=== PATIENT | male | born 1960 | race African-American/Black ===

== ENCOUNTER 2019-04-02 09:45 | Inpatient (IN) | payer OTHER ==
[2019-04-02 13:55] VITALS: BMI 26.6
--- NOTE | 2019-04-02 14:40 | HP ---
CIWA Score Nausea/Vomitin-No Nausea/No Vomiting Muscle Tremors: 4-Moderate,w/Arms Extend Anxiety: 4-Mod. Anxious/Guarded Agitation: 2 Paroxysmal Sweats: No Perspiration Orientation: 2-Disoriented Date<2 days Tacttile Disturbances: 0-None Auditory Disturbances: 0-None Visual Disturbances: 0-None Headache: 0-None Present CIWA-Ar Total Score: 12 - Admission Criteria OASAS Guidelines: Admission for Medically Managed Detox: Requires at least one of the followin. CIWA greater than 12 2. Seizures within the past 24 hours 3. Delirium tremens within the past 24 hours 4. Hallucinations within the past 24 hours 5. Acute intervention needed for co occurring medical disorder 6. Acute intervention needed for co occurring psychiatric disorder 7. Severe withdrawal that cannot be handled at a lower level of care (continued vomiting, continued diarrhea, abnormal vital signs) requiring intravenous medication and/or fluids 8. Admission ROS S - [facility] Chief Complaint: Alcohol withdrawal symptoms. Allergies/Adverse Reactions: Allergies Allergy/AdvReac Type Severity Reaction Status Date / Time No Known Allergies Allergy Verified 04/02/19 13:46 History of Present Illness: Patient presents with ETOH withdrawal symptoms. UDS + BZO as patient has active prescription Valium written 03/03/19 for five days. Patient did not take medication as prescribed but took recent dose which reflects in urine. Patient started drinking at age 14 and drinks 1 pint of vodka daily. Last drink today, GREGORIO 0.109. Patient reports hx of seizures, blackouts and falls. Last seizure 4 months ago. PMH includes tobacco use, HTN, Hep C ( not treated), HIV + ( compliant with meds and has meds with him), anxiety. depression and old CVA x 2. Patient denies SI/HI and suicide attempts. Exam Limitations: Physical Impairment (ambulates with walker.) - Ebola screening Have you traveled outside of the country in the last 21 days: No Have you had contact with anyone from an Ebola affected area: No Have you been sick,other than usual withdrawal symptoms: No Do you have a fever: No - Review of Systems Constitutional: Changes in sleep, Unexplained wgt Loss EENT: reports: No Symptoms Reported Respiratory: reports: No Symptoms reported Cardiac: reports: No Symptoms Reported GI: reports: Poor Fluid Intake, Abdominal cramping : reports: No Symptoms Reported Musculoskeletal: reports: No Symptoms Reported Integumentary: reports: No Symptoms Reported Neuro: reports: Seizure, Tremors, Unsteady Gait Endocrine: reports: No Symptoms Reported Hematology: reports: No Symptoms Reported Psychiatric: reports: Anxious, Depressed Patient History - Patient Medical History Hx Anemia: No Hx Asthma: No Hx Chronic Obstructive Pulmonary Disease (COPD): No Hx Cancer: No Hx Cardiac Disorders: No Hx Congestive Heart Failure: No Hx Hypertension: Yes Hx Hypercholesterolemia: No Hx Pacemaker: No HX Cerebrovascular Accident: Yes (CVA x 2) Hx Seizures: Yes (last 4 months ago) Hx Dementia: No Hx Diabetes: No Hx Gastrointestinal Disorders: No Hx Liver Disease: No Hx Genitourinary Disorders: No Hx Sexually Transmitted Disorders: No Hx Renal Disease (ESRD): No Hx Thyroid Disease: No Hx Human Immunodeficiency Virus (HIV): Yes (compliant with meds) Hx Hepatitis C: Yes Hx Depression: Yes Hx Suicide Attempt: No Hx Bipolar Disorder: No Hx Schizophrenia: No - Patient Surgical History Past Surgical History: Yes Hx Abdominal Surgery: Yes (S/P peg insertion 2016, hernia repair) Other Surgical History: s/p trach 2017 Anesthesia Reaction: No - PPD History Previous Implant?: No Documented Results: Negative w/o proof PPD to be Administered?: Yes - Smoking Cessation Smoking history: Current every day smoker Have you smoked in the past 12 months: Yes Aproximately how many cigarettes per day: 5 Hx Chewing Tobacco Use: No Initiated information on smoking cessation: Yes 'Breaking Loose' booklet given: 04/02/19 - Substance & Tx. History Hx Alcohol Use: Yes Hx Substance Use: No Substance Use Type: Alcohol - Substances abused Alcohol Substance route: Oral Frequency: Daily Amount used: 1 PINT VODKA Age of first use: 14 Date of last use: 04/01/19 Family Disease History - Family Disease History Family History: Denies Admission Physical Exam BHS - Vital Signs Vital Signs: Vital Signs - 24 hr 04/02/19 13:51 Temperature 97.1 F L Pulse Rate 110 H Respiratory 18 Rate Blood Pressure 139/93 - Physical General Appearance: Yes: Nourished, Appropriately Dressed, Alcohol on Breath, Tremorous, Anxious HEENTM: Yes: EOMI, Hearing grossly Normal, Normocephalic, Normal Voice, KIT, Pharynx Normal Respiratory: Yes: Chest Non-Tender, Lungs Clear, Normal Breath Sounds, No Respiratory Distress, No Accessory Muscle Use Neck: Yes: No masses,lesions,Nodules, Supple, Trachea in good position Breast: Yes: Breast Exam Deferred Cardiology: Yes: Regular Rhythm, Regular Rate, S1, S2 Abdominal: Yes: Normal Bowel Sounds, Non Tender, Soft Genitourinary: Yes: Within Normal Limits Back: Yes: Normal Inspection Musculoskeletal: Yes: full range of Motion, Other (right sided weakness) Extremities: Yes: Normal Range of Motion, Non-Tender, Tremors Neurological: Yes: vice president industrial relations II-XII NML intact, Alert, Normal Response, Depressed Affect, Other (anxious, right sided weakness, forgetfull with date) Integumentary: Yes: Normal Color, Dry, Warm Lymphatic: Yes: Within Normal Limits - Diagnostic (1) Alcohol dependence with uncomplicated withdrawal Current Visit: Yes Status: Acute (2) HTN (hypertension) Current Visit: Yes Status: Chronic Qualifiers: Hypertension type: essential hypertension Qualified Code(s): I10 - Essential (primary) hypertension (3) Right sided weakness Current Visit: Yes Status: Chronic (4) CVA, old, hemiparesis Current Visit: Yes Status: Chronic (5) HIV (human immunodeficiency virus infection) Current Visit: Yes Status: Chronic Qualifiers: HIV symptom status: unspecified Qualified Code(s): B20 - Human immunodeficiency virus [HIV] disease (6) Hepatitis C Current Visit: Yes Status: Chronic Qualifiers: Viral hepatitis chronicity: unspecified Cleared for Admission [facility] - Detox or Rehab [facility] Level of Care: Medically Managed Detox Regimen/Protocol: Librium Breathalyzer - Breathalyzer Breathalyzer: 0.109 Urine Drug Screen - Test Device Lot number: [id number] Expiration date: 12/10/20 - Control Is test valid?: Yes - Results Drug screen NEGATIVE: No Urine drug screen results: BZO-Benzodiazepines Inpatient Rehab Admission - Rehab Decision to Admit Inpatient rehab admission?: No
[2019-04-02] MEDS ORDERED: chlordiazePOXIDE HCL 25 MG CAPSULE PO PRN (14:53)
[2019-04-02] MEDS ORDERED: MAG HYDROX/AL HYDROX/SIMETH 30 ML UNIT-DOSE CUP PO PRN (14:54)
[2019-04-02] MEDS ORDERED: MAGNESIUM HYDROX 2400MG/30ML ORAL SUSPENSION 30 ML CUP PO PRN (14:54)
[2019-04-02] MEDS ORDERED: hydrOXYzine PAMOATE 25 MG CAPSULE (FP) PO PRN (14:54)
[2019-04-02] MEDS ORDERED: IBUPROFEN 400 MG TABLET (FP) PO PRN (14:54)
[2019-04-02] MEDS ORDERED: BISMUTH SUBSALICYLATE 524 MG/30 ML UD PO PRN (14:54)
[2019-04-02] MEDS ORDERED: MAGNESIUM CITRATE 300 ML BOTTLE PO PRN (14:54)
[2019-04-02] MEDS ORDERED: NICOTINE POLACRILEX 2 MG GUM BUC PRN (14:54)
[2019-04-02] MEDS ORDERED: ACETAMINOPHEN 325 MG TABLET (FP) PO PRN ×2 (14:54)
[2019-04-02] MEDS ORDERED: MENTHOL/PHENOL 1 EACH UD MM PRN (14:54)
[2019-04-02] MEDS ORDERED: guaiFENesin 200 MG/10 ML 10 ML UNIT-DOSE CUPS PO PRN (14:54)
[2019-04-02 16:00] LABS: HEMATOCRIT 44.8 % (35.4-49); HEMOGLOBIN 14.9 GM/dL (11.7-16.9); MCH 29.4 pg (25.7-33.7); MCHC 33.3 g/dl (32.0-35.9); MEAN CELL VOLUME 88.3 fl (80-96); PLATELET COUNT 210 K/MM3 (134-434); RBC 5.07 M/mm3 (4.00-5.60); RDW 15.4 % (11.9-15.9); WHITE BLOOD COUNT 2.5 K/mm3 (4.0-10.0)
[2019-04-02 16:24] LABS: ALBUMIN 3.8 g/dl (3.4-5.0); BILIRUBIN,TOTAL 0.8 mg/dL (0.2-1); BLOOD UREA NITROGEN 11.8 mg/dL (7-18); CALCIUM 8.9 mg/dL (8.5-10.1); CREATININE 0.6 mg/dL (0.55-1.3); POTASSIUM 3.4 mmol/L (3.5-5.1); TOT PROT 8.5 g/dl (6.4-8.2)
[2019-04-02] MEDS: chlordiazePOXIDE HCL 25 MG CAPSULE PO SCH ×2 (17:21→22:12)
--- NOTE | 2019-04-02 17:42 | CONSULT ---
[facility] Psychiatric Consult - Data Date of interview: 04/02/19 Admission source: [facility] Identifying data: Readmission to [facility] for this 59 y/o AA male self- referred for detoxification (alcohol). Interviewed at [address] [place] [address]. Patient is single , no dependents, domiciled, unemploye, disabled (uses a walker + cane) and supported on [employer] funds. Substance Abuse History: Confirmed by the patient in this interview. Details in current [facility] report as follows : Smoking history: Current every day smoker. Have you smoked in the past 12 months: Yes. Aproximately how many cigarettes per day: 5. Hx Chewing Tobacco Use: No. Initiated information on smoking cessation: Yes. 'Breaking Loose' booklet given: 04/02/19. - Substance & Tx. History. Hx Alcohol Use: Yes. Hx Substance Use: No. Substance Use Type: Alcohol. - Substances abused. Alcohol. Substance route: Oral. Frequency: Daily. Amount used: 1 PINT VODKA. Age of first use: 14. Date of last use: Medical History: Medical profile is remarkable for PEG placement (2017), past tracheostomy, hypertension, antecedent of CVA x 2 (right sided paresis), hepatitis C, HIV infection (non-adherent to ART medications and a history of seizures. Psychiatric History: Patient denies history of psychiatric hospitalizations, OPD care or suicide attempts. Physical/Sexual Abuse/Trauma History: Heavy stressors : serious medical illnesses, physical disabilities, financial difficulties and lack of family support. Additional Comment: Urine drug screen results: BZO-Benzodiazepines. Noted. Mental Status Exam - Mental Status Exam Alert and Oriented to: Time, Place, Person Cognitive Function: Good Patient Appearance: Unkempt, Disheveled Mood: Nervous, Withdrawn, Anxious, Irritable Affect: Mood Congruent, Constricted Patient Behavior: Restless (shaking), Fatigued, Appropriate, Cooperative Speech Pattern: Clear, Appropriate Voice Loudness: Normal Thought Process: Goal Oriented Thought Disorder: Not Present Hallucinations: Denies Suicidal Ideation: Denies Homicidal Ideation: Denies Insight/Judgement: Poor Sleep: Poorly, Difficulty falling asleep Appetite: Poor Gait/Station: Other (not observed ; supine for entire interview ; noted cane + walker at bedside) Psychiatric Findings - Problem List ([place] 1, 2,3) (1) Alcohol dependence with uncomplicated withdrawal Current Visit: Yes Status: Acute (2) Insomnia Current Visit: Yes Status: Chronic - Initial Treatment Plan Initial Treatment Plan: Psychoeducation. Sleep hygiene. Insomnia is addressed with melatonin. Detoxification. Falls precautions. AA meetings. Patient agrees with this plan of care. Verbal consent given to MD. Munoz.
[2019-04-02 21:30] LABS: EPI CELLS 0.9 /HPF (0-5/HPF); HYALINE CASTS 7 /lpf (0-8); PH,URINE 6.5 (5.0-8.0); URINE APPEARANCE TURBID; URINE BACTERIA 1.7 /hpf (NEGATIVE); URINE BILIRUBIN 1+ (NEGATIVE); URINE COLOR DK YELLOW; URINE GLUCOSE (UA) NEGATIVE (NEGATIVE); URINE KETONE TRACE (NEGATIVE); URINE LEUK ESTERASE NEGATIVE (NEGATIVE); URINE NITRITE NEGATIVE (NEGATIVE); URINE PROTEIN 2+ (NEGATIVE); URINE RBC 4 /hpf (0-4); URINE WBC 1 /hpf (0-5)
[2019-04-02] MEDS: levETIRAcetam 500 MG TABLET (FP) PO SCH (22:12)
[2019-04-02] MEDS: THIAMINE HCL 100 MG TABLET (FP) PO SCH (22:12)
[2019-04-02] MEDS: MELATONIN 5 MG TABLETS PO PRN (22:13)
[2019-04-03] MEDS: chlordiazePOXIDE HCL 25 MG CAPSULE PO SCH ×4 (06:08→22:22)
[2019-04-03] MEDS: ABACAVIR/DOLUTEGRAVIR/LAMIVUDI (TRIUMEQ) TABLET -NF PO SCH (07:48)
--- NOTE | 2019-04-03 10:01 | PN ---
S CIWA - CIWA Score Nausea/Vomitin-No Nausea/No Vomiting Muscle Tremors: 3 Anxiety: 2 Agitation: 2 Paroxysmal Sweats: 2 Orientation: 0-Oriented Tacttile Disturbances: 0-None Auditory Disturbances: 0-None Visual Disturbances: 0-None Headache: 2-Mild CIWA-Ar Total Score: 11 S Progress Note (SOAP) Subjective: c/o shakes, anxiety, and headache Objective: 04/03/19 10:00 Vital Signs 04/03/19 04/03/19 04/03/19 03:30 06:27 09:46 Temperature 97.2 F L 97.5 F L Pulse Rate 105 H 114 H Respiratory 18 18 18 Rate Blood Pressure 131/95 110/81 Lab Results WBC 2.5 K/mm3 (4.0-10.0) L 04/02/19 15:00 RBC 5.07 M/mm3 (4.00-5.60) 04/02/19 15:00 Hgb 14.9 GM/dL (11.7-16.9) 04/02/19 15:00 Hct 44.8 % (35.4-49) 04/02/19 15:00 MCV 88.3 fl (80-96) 04/02/19 15:00 MCHC 33.3 g/dl (32.0-35.9) 04/02/19 15:00 RDW 15.4 % (11.9-15.9) 04/02/19 15:00 Plt Count 210 K/MM3 (134-434) 04/02/19 15:00 Sodium 141 mmol/L (136-145) 04/02/19 15:00 Potassium 3.4 mmol/L (3.5-5.1) L 04/02/19 15:00 Chloride 106 mmol/L (98-107) 04/02/19 15:00 Carbon Dioxide 26 mmol/L (21-32) 04/02/19 15:00 Anion Gap 9 MMOL/L (8-16) 04/02/19 15:00 BUN 11.8 mg/dL (7-18) 04/02/19 15:00 Creatinine 0.6 mg/dL (0.55-1.3) 04/02/19 15:00 Random Glucose 131 mg/dL (74-106) H 04/02/19 15:00 Calcium 8.9 mg/dL (8.5-10.1) 04/02/19 15:00 Labs noted. Assessment: 04/03/19 10:01 AOX3, in no acute distress. Full rom, ambulates in the unit. withdrawal signs Plan: continue detox.
[2019-04-03] MEDS: amLODIPine BESYLATE 2.5 MG TABLET (FP) PO SCH (10:08)
[2019-04-03] MEDS: levETIRAcetam 500 MG TABLET (FP) PO SCH ×2 (10:08→22:22)
[2019-04-03] MEDS: PRENATAL VITAMINS W/ FOLIC ACID TABLET (FP) PO SCH (10:08)
[2019-04-03] MEDS: NICOTINE 7 MG/24 HOURS TOPICAL PATCH TD SCH (10:09)
--- NOTE | 2019-04-03 12:38 | EKG ---
Test Reason : Blood Pressure : / mmHG Vent. Rate : 096 BPM Atrial Rate : 096 BPM P-R Int : 168 ms QRS Dur : 082 ms QT Int : 338 ms P-R-T Axes : 038 021 022 degrees QTc Int : 427 ms SINUS RHYTHM WITH PREMATURE ATRIAL COMPLEXES NO PREVIOUS ECGS AVAILABLE Confirmed by JOSE ALFREDO BLUE MD ([id number]) on 04/03/2019 12:37:53 PM Referred By: Confirmed By:JOSE ALFREDO BLUE MD
[2019-04-03] MEDS: THIAMINE HCL 100 MG TABLET (FP) PO SCH (22:22)
[2019-04-03] MEDS: MELATONIN 5 MG TABLETS PO PRN (22:23)
[2019-04-04] MEDS: chlordiazePOXIDE HCL 25 MG CAPSULE PO SCH ×2 (05:57→10:15)
[2019-04-04] MEDS: ABACAVIR/DOLUTEGRAVIR/LAMIVUDI (TRIUMEQ) TABLET -NF PO SCH (07:21)
[2019-04-04] MEDS: PRENATAL VITAMINS W/ FOLIC ACID TABLET (FP) PO SCH (10:15)
[2019-04-04] MEDS: amLODIPine BESYLATE 2.5 MG TABLET (FP) PO SCH (10:15)
[2019-04-04] MEDS: levETIRAcetam 500 MG TABLET (FP) PO SCH ×2 (10:15→22:02)
[2019-04-04] MEDS: NICOTINE 7 MG/24 HOURS TOPICAL PATCH TD SCH (10:16)
--- NOTE | 2019-04-04 13:22 | PN ---
S CIWA - CIWA Score Nausea/Vomitin Muscle Tremors: 2 Anxiety: 2 Agitation: 1-Slight > Activity Paroxysmal Sweats: No Perspiration Orientation: 0-Oriented Tacttile Disturbances: 0-None Auditory Disturbances: 0-None Visual Disturbances: 0-None Headache: 1-Very Mild CIWA-Ar Total Score: 8 BHS Progress Note (SOAP) Subjective: ANXIOUS SWEATING INSOMNIA Objective: 04/04/19 13:21 Vital Signs - 24 hr 04/03/19 04/03/19 04/03/19 13:49 17:41 22:15 Temperature 97.1 F L 97.8 F 97.4 F L Pulse Rate 123 H 110 H 111 H Respiratory 18 17 17 Rate Blood Pressure 111/79 121/93 111/87 04/04/19 04/04/19 04/04/19 00:30 03:30 06:29 Temperature 97 F L Pulse Rate 92 H Respiratory 18 18 16 Rate Blood Pressure 116/80 04/04/19 04/04/19 09:19 13:11 Temperature 97 F L 96.7 F L Pulse Rate 98 H 118 H Respiratory 18 18 Rate Blood Pressure 107/74 109/86 Laboratory Tests 04/02/19 04/02/19 04/02/19 15:00 15:00 15:00 WBC 2.5 L RBC 5.07 Hgb 14.9 Hct 44.8 MCV 88.3 MCH 29.4 MCHC 33.3 RDW 15.4 Plt Count 210 MPV 8.0 Sodium 141 Potassium 3.4 L Chloride 106 Carbon Dioxide 26 Anion Gap 9 BUN 11.8 Creatinine 0.6 Est GFR (CKD-EPI)AfAm 126.66 Est GFR (CKD-EPI)NonAf 109.28 Random Glucose 131 H Calcium 8.9 Total Bilirubin 0.8 AST 63 H ALT 33 Alkaline Phosphatase 82 Total Protein 8.5 H Albumin 3.8 Urine Color Urine Appearance Urine pH Ur Specific [place] Urine Protein Urine Glucose (UA) Urine Ketones Urine Blood Urine Nitrite Urine Bilirubin Urine Urobilinogen Ur Leukocyte Esterase Urine WBC (Auto) Urine RBC (Auto) Urine Casts (Auto) U Epithel Cells (Auto) Urine Bacteria (Auto) RPR Titer Nonreactive 04/02/19 15:42 WBC RBC Hgb Hct MCV MCH MCHC RDW Plt Count MPV Sodium Potassium Chloride Carbon Dioxide Anion Gap BUN Creatinine Est GFR (CKD-EPI)AfAm Est GFR (CKD-EPI)NonAf Random Glucose Calcium Total Bilirubin AST ALT Alkaline Phosphatase Total Protein Albumin Urine Color Dk yellow Urine Appearance Turbid Urine pH 6.5 Ur Specific [place] 1.027 Urine Protein 2+ H Urine Glucose (UA) Negative Urine Ketones Trace H Urine Blood Negative Urine Nitrite Negative Urine Bilirubin 1+ H Urine Urobilinogen 1.0 Ur Leukocyte Esterase Negative Urine WBC (Auto) 1 Urine RBC (Auto) 4 Urine Casts (Auto) 7 U Epithel Cells (Auto) 0.9 Urine Bacteria (Auto) 1.7 RPR Titer ALERT AMBULATORY ORIENTED Assessment: 04/04/19 13:21 ACUTE WITHDRAWAL Plan: CONT DETOX PROTOCOL
[2019-04-04] MEDS ORDERED: chlordiazePOXIDE HCL 10 MG CAPSULE PO PRN (17:00)
[2019-04-04] MEDS: chlordiazePOXIDE HCL 10 MG CAPSULE PO SCH ×2 (17:29→22:02)
[2019-04-04] MEDS: THIAMINE HCL 100 MG TABLET (FP) PO SCH (22:02)
[2019-04-04] MEDS: MELATONIN 5 MG TABLETS PO PRN (22:02)
[2019-04-05] MEDS: chlordiazePOXIDE HCL 10 MG CAPSULE PO SCH ×3 (05:45→16:16)
[2019-04-05] MEDS: ABACAVIR/DOLUTEGRAVIR/LAMIVUDI (TRIUMEQ) TABLET -NF PO SCH (07:43)
[2019-04-05] MEDS: levETIRAcetam 500 MG TABLET (FP) PO SCH ×2 (11:01→22:05)
[2019-04-05] MEDS: PRENATAL VITAMINS W/ FOLIC ACID TABLET (FP) PO SCH (11:01)
[2019-04-05] MEDS: NICOTINE 7 MG/24 HOURS TOPICAL PATCH TD SCH (11:01)
[2019-04-05] MEDS: amLODIPine BESYLATE 2.5 MG TABLET (FP) PO SCH (12:15)
--- NOTE | 2019-04-05 15:00 | PN ---
S CIWA - CIWA Score Nausea/Vomitin-No Nausea/No Vomiting Muscle Tremors: 3 Anxiety: 1-Mildly Anxious Agitation: 1-Slight > Activity Paroxysmal Sweats: No Perspiration Orientation: 2-Disoriented Date<2 days Tacttile Disturbances: 1-Very Mild Itch/Numbness Auditory Disturbances: 0-None Visual Disturbances: 1-Very Mild Sensitivity Headache: 0-None Present CIWA-Ar Total Score: 9 BHS Progress Note (SOAP) Subjective: Tremors, Anxious. Objective: PATIENT A & O X 2 (UNCERTAIN ABOUT CURRENT DAY / DATE). PATIENT OBSERVED AMBULATING ON UNIT UNASSISTED. IN NO ACUTE DISTRESS. 04/05/19 14:57 Vital Signs Temperature 97.3 F L 04/05/19 13:20 Pulse Rate 98 H 04/05/19 13:20 Respiratory Rate 18 04/05/19 13:20 Blood Pressure 119/87 04/05/19 13:20 O2 Sat by Pulse Oximetry (%) Laboratory Tests 04/02/19 04/02/19 04/02/19 15:00 15:00 15:00 WBC 2.5 L RBC 5.07 Hgb 14.9 Hct 44.8 MCV 88.3 MCH 29.4 MCHC 33.3 RDW 15.4 Plt Count 210 MPV 8.0 Sodium 141 Potassium 3.4 L Chloride 106 Carbon Dioxide 26 Anion Gap 9 BUN 11.8 Creatinine 0.6 Est GFR (CKD-EPI)AfAm 126.66 Est GFR (CKD-EPI)NonAf 109.28 Random Glucose 131 H Calcium 8.9 Total Bilirubin 0.8 AST 63 H ALT 33 Alkaline Phosphatase 82 Total Protein 8.5 H Albumin 3.8 Urine Color Urine Appearance Urine pH Ur Specific [place] Urine Protein Urine Glucose (UA) Urine Ketones Urine Blood Urine Nitrite Urine Bilirubin Urine Urobilinogen Ur Leukocyte Esterase Urine WBC (Auto) Urine RBC (Auto) Urine Casts (Auto) U Epithel Cells (Auto) Urine Bacteria (Auto) RPR Titer Nonreactive 04/02/19 15:42 WBC RBC Hgb Hct MCV MCH MCHC RDW Plt Count MPV Sodium Potassium Chloride Carbon Dioxide Anion Gap BUN Creatinine Est GFR (CKD-EPI)AfAm Est GFR (CKD-EPI)NonAf Random Glucose Calcium Total Bilirubin AST ALT Alkaline Phosphatase Total Protein Albumin Urine Color Dk yellow Urine Appearance Turbid Urine pH 6.5 Ur Specific [place] 1.027 Urine Protein 2+ H Urine Glucose (UA) Negative Urine Ketones Trace H Urine Blood Negative Urine Nitrite Negative Urine Bilirubin 1+ H Urine Urobilinogen 1.0 Ur Leukocyte Esterase Negative Urine WBC (Auto) 1 Urine RBC (Auto) 4 Urine Casts (Auto) 7 U Epithel Cells (Auto) 0.9 Urine Bacteria (Auto) 1.7 RPR Titer LABS NOTED. LEVETIRACETAM LEVEL PENDING. PATIENT HAD LOW WBC LEVELS ON PREVIOUS ADMISSIONS. 04/05/19 15:01 Assessment: 04/05/19 14:59 WITHDRAWAL SYMPTOMS. HYPOKAQLEMIA. LEUKOPENIA. 04/05/19 15:04 Plan: CONTINUE DETOX. K--DUR, 40 MEQ PO X 1 NOW, THEN 20 MEW PO X 1 TONIGHT FOR LOW ADMISSION K LEVEL. PATIENT SCHEDULED FOR D/C TOMORROW.
[2019-04-05] MEDS ORDERED: POTASSIUM CHLORIDE TABS 20 MEQ TABLET.ER (FP) PO ONE ×2 (15:35→22:00)
[2019-04-05] MEDS ORDERED: cloNIDine HCL 0.1 MG TABLET PO ONE (20:16)
[2019-04-05] MEDS: MELATONIN 5 MG TABLETS PO PRN (22:05)
[2019-04-05] MEDS: THIAMINE HCL 100 MG TABLET (FP) PO SCH (22:05)
[2019-04-06] MEDS: chlordiazePOXIDE HCL 10 MG CAPSULE PO SCH (05:42)
[2019-04-06 06:20] VITALS: TEMP 97.1
[2019-04-06] MEDS: ABACAVIR/DOLUTEGRAVIR/LAMIVUDI (TRIUMEQ) TABLET -NF PO SCH (07:36)
[2019-04-06 09:31] VITALS: BP 117/87; PULSE 98
[2019-04-06] MEDS ORDERED: ASPIRIN COATED 81 MG TABLET.EC PO SCH (10:00)
--- NOTE | 2019-04-06 17:04 | DS ---
[facility] Detox Discharge Summary Admission Date: 04/02/19 Discharge Date: 04/06/19 - History Present History: Alcohol Dependence Additional Comments: PATIENT INITIALLY INTENT ON GOING TO [facility], [place]) FOR AFTERCARE. HOWEVER, PATIENT DECLINED REFERRAL JUST PRIOR TO LEAVING DETOX UNIT AND ELECTED TO GO HOME INSTEAD. PATIENT ADVISED TO CONSIDER LOCAL 12-STEP / NA / AA OUTPATIENT SUPPORT GROUP PROGRAMS FOR AFTERCARE. PATIENT ALSO ADVISED TO FOLLOW-UP WITH SALES REPRESENTATIVE [employer]EWEL[employer] AFTER DISCHARGE FROM DETOX FOR GENERAL MEDICAL ASSESSMENT AND FOR LOW WBC AND POTASSIUM LEVELS NOTED ON DETOX ADMISSION LABORATORY ASSESSMENT. PATIENT VERBALIZED UNDERSTANDING OF ALL RECOMMENDATIONS PRESENTED TO HIM PRIOR TO DISCHARGE FROM DETOX UNIT. COPIES OF RESULTS OF ALL LABS DRAWN WHILE ADMITTED FOR DETOX GIVEN TO PATIENT AT TIME OF DISCHARGE FROM DETOX UNIT. TRANSPORTATION ARRANGED BY PATIENTS COUNSELOR (Rosalva CARRILLO) TO ASSIST HIM BACK HOME. PATIENT WAS DISCHARGED FROM DETOX UNIT NI STABLE MEDICAL CONDITION. Pertinent Past History: History Of CVA With Subsequent Hemiparesis and Right-Sided Weakness, HTN, Hep C , H.I.V., Hypokalemia, Leukopenia, Insomnia. - Physical Exam Results Vital Signs: Vital Signs Temperature 97.1 F L 04/06/19 09:00 Pulse Rate 98 H 04/06/19 09:00 Respiratory Rate 17 04/06/19 09:00 Blood Pressure 117/87 04/06/19 09:00 O2 Sat by Pulse Oximetry (%) Pertinent Admission Physical Exam Findings: WITHDRAWAL SYMPTOMS. Laboratory Tests 04/02/19 04/02/19 04/02/19 15:00 15:00 15:00 WBC 2.5 L RBC 5.07 Hgb 14.9 Hct 44.8 MCV 88.3 MCH 29.4 MCHC 33.3 RDW 15.4 Plt Count 210 MPV 8.0 Sodium 141 Potassium 3.4 L Chloride 106 Carbon Dioxide 26 Anion Gap 9 BUN 11.8 Creatinine 0.6 Est GFR (CKD-EPI)AfAm 126.66 Est GFR (CKD-EPI)NonAf 109.28 Random Glucose 131 H Calcium 8.9 Total Bilirubin 0.8 AST 63 H ALT 33 Alkaline Phosphatase 82 Total Protein 8.5 H Albumin 3.8 Urine Color Urine Appearance Urine pH Ur Specific [place] Urine Protein Urine Glucose (UA) Urine Ketones Urine Blood Urine Nitrite Urine Bilirubin Urine Urobilinogen Ur Leukocyte Esterase Urine WBC (Auto) Urine RBC (Auto) Urine Casts (Auto) U Epithel Cells (Auto) Urine Bacteria (Auto) RPR Titer Nonreactive 04/02/19 15:42 WBC RBC Hgb Hct MCV MCH MCHC RDW Plt Count MPV Sodium Potassium Chloride Carbon Dioxide Anion Gap BUN Creatinine Est GFR (CKD-EPI)AfAm Est GFR (CKD-EPI)NonAf Random Glucose Calcium Total Bilirubin AST ALT Alkaline Phosphatase Total Protein Albumin Urine Color Dk yellow Urine Appearance Turbid Urine pH 6.5 Ur Specific [place] 1.027 Urine Protein 2+ H Urine Glucose (UA) Negative Urine Ketones Trace H Urine Blood Negative Urine Nitrite Negative Urine Bilirubin 1+ H Urine Urobilinogen 1.0 Ur Leukocyte Esterase Negative Urine WBC (Auto) 1 Urine RBC (Auto) 4 Urine Casts (Auto) 7 U Epithel Cells (Auto) 0.9 Urine Bacteria (Auto) 1.7 RPR Titer LABS NOTED. - Treatment Hospital Course: Detox Protocol Followed, Detoxed Safely, Responded well, Discharged Condition Good Patient has Accepted a Rehab Referral to: PT. ADVISED TO CONSIDER LOCAL 12-STEP / AA OUTPATIENT SUPPORT GROUP PROGRAM - Medication Discharge Medications: Ambulatory Orders Abacavir/Dolutegravir/Lamivudi [Triumeq Tablet] 1 each PO DAILY 04/02/19 Amlodipine Besylate 2.5 mg PO DAILY 04/02/19 Aspirin [Aspirin EC] 81 mg PO DAILY 04/02/19 Nicotine Patch [Nicoderm Patch -] 1 patch TD DAILY 04/02/19 Thiamine Mononitrate [Vitamin B-1] 100 mg PO DAILY 04/02/19 levETIRAcetam [Keppra -] 500 mg PO BID 04/02/19 - Diagnosis (1) Alcohol dependence with uncomplicated withdrawal Status: Acute (2) CVA, old, hemiparesis Status: Chronic (3) HIV (human immunodeficiency virus infection) Status: Chronic Qualifiers: HIV symptom status: unspecified Qualified Code(s): B20 - Human immunodeficiency virus [HIV] disease (4) HTN (hypertension) Status: Chronic Qualifiers: Hypertension type: essential hypertension Qualified Code(s): I10 - Essential (primary) hypertension (5) Hepatitis C Status: Chronic Qualifiers: Viral hepatitis chronicity: chronic Hepatic coma status: without hepatic coma Qualified Code(s): B18.2 - Chronic viral hepatitis C (6) Insomnia Status: Chronic Qualifiers: Insomnia type: unspecified Qualified Code(s): G47.00 - Insomnia, unspecified (7) Right sided weakness Status: Chronic - AMA Did Patient Leave Against Medical Advice: No
--- NOTE | 2019-06-08 09:39 | EKG ---
Test Reason : Blood Pressure : / mmHG Vent. Rate : 106 BPM Atrial Rate : 106 BPM P-R Int : 176 ms QRS Dur : 090 ms QT Int : 354 ms P-R-T Axes : 061 052 047 degrees QTc Int : 470 ms SINUS TACHYCARDIA OTHERWISE NORMAL ECG WHEN COMPARED WITH ECG OF 02-APR-2019 15:46, PREMATURE ATRIAL COMPLEXES ARE NO LONGER PRESENT Confirmed by Dannie Bell MD ([id number]) on 06/08/2019 9:39:07 AM Referred By: Confirmed By:Dannie Bell MD
== END 2019-04-06 09:15 | disposition home or self-care (01) | DRG 775 ==
LOC: YASAS 09:45 → Y3N 15:36
PROVIDERS: ADMIT Surgery; ATTEND Surgery
PROC: HZ2ZZZZ Detoxification Services for Substance Abuse Treatment (ICD-10-PCS; principal; 2019-04-02)
DX: F10.230 Alcohol dependence with withdrawal, uncomplicated (principal); F17.210 Nicotine dependence, cigarettes, uncomplicated; I10 Essential (primary) hypertension; Z21 Asymptomatic human immunodeficiency virus [HIV] infection status; B18.2 Chronic viral hepatitis C; G47.00 Insomnia, unspecified; I69.351 Hemiplegia and hemiparesis following cerebral infarction affecting right dominant side; E87.6 Hypokalemia; D72.819 Decreased white blood cell count, unspecified; Z86.69 Personal history of other diseases of the nervous system and sense organs
CPT/HCPCS: 36415; 80053; 80177; 81003; 85027; 86593; 93005; 93010; J0735

== ENCOUNTER 2022-10-24 16:59 | Inpatient (IN) | payer OTHER ==
[2022-10-24 17:40] VITALS: BMI 26.6
[2022-10-24] MEDS ORDERED: IBUPROFEN 600 MG TABLET (FP) PO PRN (18:49)
[2022-10-24] MEDS ORDERED: MAG HYDROX/AL HYDROX/SIMETH 30 ML UNIT-DOSE CUP PO PRN (18:49)
[2022-10-24] MEDS ORDERED: LOPERAMIDE HCL 2 MG CAPSULE PO PRN (18:49)
[2022-10-24] MEDS ORDERED: POLYETHYLENE GLYCOL (HEALTHYLAX) 3350 17 GM PACKET PO PRN (18:49)
[2022-10-24] MEDS ORDERED: BISMUTH SUBSALICYLATE 524 MG/30 ML PO PRN (18:49)
[2022-10-24] MEDS ORDERED: BENZOCAINE/MENTHOL (CHLORASEPTIC ) LOZENGE MM PRN (18:49)
[2022-10-24] MEDS ORDERED: ACETAMINOPHEN 325 MG TABLET (FP) PO PRN ×2 (18:49)
[2022-10-24] MEDS ORDERED: ONDANSETRON *ODT* 4 MG TABLET SL PRN (18:49)
[2022-10-24] MEDS ORDERED: IBUPROFEN 400 MG TABLET (FP) PO PRN (18:49)
[2022-10-24] MEDS ORDERED: MAGNESIUM HYDROX 2400MG/30ML ORAL SUSPENSION 30 ML CUP PO PRN (18:49)
[2022-10-24] MEDS ORDERED: NICOTINE 10 MG CARTRIDGE (INHALER) IH PRN (18:49)
[2022-10-24] MEDS ORDERED: DICYCLOMINE HCL 10 MG CAPSULE PO PRN (18:49)
[2022-10-24] MEDS ORDERED: NALOXONE HCL (KLOXXADO) 8 MG SPRAY NS PRN (18:49)
[2022-10-24] MEDS ORDERED: METHOCARBAMOL 500 MG TABLET PO PRN (18:49)
[2022-10-24] MEDS ORDERED: LORazepam 1 MG TABLET ONE (19:46)
[2022-10-24] MEDS: LORazepam 1 MG TABLET PO PRN (19:47)
[2022-10-24] MEDS: NICOTINE 7 MG/24 HOURS TOPICAL PATCH TD SCH (21:45)
[2022-10-24] MEDS ORDERED: levETIRAcetam 500 MG TABLET (FP) PO ONE (21:46)
[2022-10-24] MEDS: THIAMINE HCL 100 MG TABLET (FP) PO SCH (21:51)
[2022-10-24] MEDS: MELATONIN 5 MG TABLETS PO SCH (21:51)
[2022-10-24] MEDS ORDERED: levETIRAcetam 500 MG TABLET (FP) PO SCH (22:00)
[2022-10-24] MEDS ORDERED: LORazepam 2 MG TABLET ONE (23:09)
[2022-10-24] MEDS: LORazepam 2 MG TABLET PO SCH (23:10)
[2022-10-25] MEDS ORDERED: LORazepam 2 MG TABLET ONE (05:57)
[2022-10-25] MEDS: LORazepam 2 MG TABLET PO SCH ×4 (06:04→22:57)
[2022-10-25] MEDS ORDERED: cloNIDine HCL 0.1 MG TABLET PO ONE ×2 (06:38→22:06)
[2022-10-25] MEDS ORDERED: cloNIDine HCL 0.1 MG TABLET ONE (06:42)
[2022-10-25] MEDS ORDERED: amLODIPine BESYLATE 2.5 MG TABLET (FP) PO SCH (10:00)
[2022-10-25] MEDS: levETIRAcetam 500 MG TABLET (FP) PO SCH ×2 (10:03→22:57)
[2022-10-25] MEDS: amLODIPine BESYLATE 5 MG TABLET (FP) PO SCH (10:03)
[2022-10-25] MEDS: PRENATAL VITAMINS W/ FOLIC ACID TABLET (FP) PO SCH (10:03)
[2022-10-25] MEDS: ASPIRIN COATED 81 MG TABLET.EC PO SCH (10:03)
[2022-10-25] MEDS: ABACAVIR/DOLUTEGRAVIR/LAMIVUDI (TRIUMEQ) TABLET -NF PO SCH (10:04)
[2022-10-25] MEDS: NICOTINE 7 MG/24 HOURS TOPICAL PATCH TD SCH (10:13)
[2022-10-25 12:30] LABS: HEMATOCRIT 41.6 % (35.4-49); HEMOGLOBIN 13.5 GM/dL (11.7-16.9); MCH 29.7 pg (25.7-33.7); MCHC 32.5 g/dl (32.0-35.9); MEAN CELL VOLUME 91.5 fl (80-96); MEAN PLT VOLUME 8.4 fl (7.5-11.1); PLATELET COUNT 188 10^3/uL (134-434); RBC 4.55 M/mm3 (4.00-5.60); RDW 15.8 % (11.9-15.9); WHITE BLOOD COUNT 2.2 K/mm3 (4.0-10.0)
[2022-10-25 12:46] LABS: CALCIUM 8.9 mg/dL (8.5-10.1)
[2022-10-25 12:50] LABS: CREATININE 0.8 mg/dL (0.55-1.3)
[2022-10-25 12:52] LABS: BILIRUBIN,TOTAL 0.6 mg/dL (0.2-1); TOT PROT 7.4 g/dl (6.4-8.2)
[2022-10-25] MEDS: MELATONIN 5 MG TABLETS PO SCH (22:57)
[2022-10-25] MEDS: THIAMINE HCL 100 MG TABLET (FP) PO SCH (22:57)
[2022-10-26] MEDS: LORazepam 1 MG TABLET PO SCH ×4 (05:42→22:18)
[2022-10-26] MEDS: ASPIRIN COATED 81 MG TABLET.EC PO SCH (10:36)
[2022-10-26] MEDS: amLODIPine BESYLATE 5 MG TABLET (FP) PO SCH (10:36)
[2022-10-26] MEDS: levETIRAcetam 500 MG TABLET (FP) PO SCH ×2 (10:36→22:17)
[2022-10-26] MEDS: PRENATAL VITAMINS W/ FOLIC ACID TABLET (FP) PO SCH (10:37)
[2022-10-26] MEDS: ABACAVIR/DOLUTEGRAVIR/LAMIVUDI (TRIUMEQ) TABLET -NF PO SCH (10:38)
[2022-10-26] MEDS: NICOTINE 7 MG/24 HOURS TOPICAL PATCH TD SCH (10:43)
[2022-10-26] MEDS: LORazepam 1 MG TABLET PO PRN (13:52)
[2022-10-26] MEDS: THIAMINE HCL 100 MG TABLET (FP) PO SCH (22:17)
[2022-10-26] MEDS: MELATONIN 5 MG TABLETS PO SCH ×2 (22:18→22:22)
[2022-10-27] MEDS ORDERED: LORazepam 0.5 MG TABLET PO PRN
[2022-10-27] MEDS: LORazepam 0.5 MG TABLET PO SCH ×4 (05:17→22:41)
[2022-10-27] MEDS: hydrOXYzine PAMOATE 25 MG CAPSULE (FP) PO PRN (05:17)
[2022-10-27] MEDS: ASPIRIN COATED 81 MG TABLET.EC PO SCH (10:14)
[2022-10-27] MEDS: levETIRAcetam 500 MG TABLET (FP) PO SCH ×2 (10:14→22:41)
[2022-10-27] MEDS: ABACAVIR/DOLUTEGRAVIR/LAMIVUDI (TRIUMEQ) TABLET -NF PO SCH (10:15)
[2022-10-27] MEDS: PRENATAL VITAMINS W/ FOLIC ACID TABLET (FP) PO SCH (10:15)
[2022-10-27] MEDS: amLODIPine BESYLATE 5 MG TABLET (FP) PO SCH (10:15)
[2022-10-27] MEDS: NICOTINE 7 MG/24 HOURS TOPICAL PATCH TD SCH (10:17)
[2022-10-27] MEDS: THIAMINE HCL 100 MG TABLET (FP) PO SCH (22:41)
[2022-10-27] MEDS: MELATONIN 5 MG TABLETS PO SCH (22:53)
[2022-10-28] MEDS ORDERED: cloNIDine HCL 0.1 MG TABLET PO ONE ×2 (00:34→01:45)
[2022-10-28] MEDS ORDERED: LORazepam 0.5 MG TABLET PO ONE (05:00)
[2022-10-28] MEDS: hydrOXYzine PAMOATE 25 MG CAPSULE (FP) PO PRN (05:30)
[2022-10-28 05:55] VITALS: RESP 18
[2022-10-28 09:10] VITALS: BP 136/97; PULSE 90; TEMP 98.4
[2022-10-28] MEDS: ASPIRIN COATED 81 MG TABLET.EC PO SCH (09:15)
[2022-10-28] MEDS: amLODIPine BESYLATE 5 MG TABLET (FP) PO SCH (09:16)
[2022-10-28] MEDS: ABACAVIR/DOLUTEGRAVIR/LAMIVUDI (TRIUMEQ) TABLET -NF PO SCH (09:16)
[2022-10-28] MEDS: NICOTINE 7 MG/24 HOURS TOPICAL PATCH TD SCH (09:16)
[2022-10-28] MEDS: PRENATAL VITAMINS W/ FOLIC ACID TABLET (FP) PO SCH (09:16)
[2022-10-28] MEDS: levETIRAcetam 500 MG TABLET (FP) PO SCH (09:19)
== END 2022-10-28 09:11 | disposition home or self-care (01) | DRG 775 ==
LOC: YASAS 16:59 → Y6N 10-25 09:28
PROVIDERS: ADMIT Allergy & Immunology; ATTEND Surgery
PROC: HZ2ZZZZ Detoxification Services for Substance Abuse Treatment (ICD-10-PCS; principal; 2022-10-25)
DX: F10.230 Alcohol dependence with withdrawal, uncomplicated (principal); Z21 Asymptomatic human immunodeficiency virus [HIV] infection status; I10 Essential (primary) hypertension; D72.818 Other decreased white blood cell count; G40.909 Epilepsy, unspecified, not intractable, without status epilepticus; G47.00 Insomnia, unspecified; R76.11 Nonspecific reaction to tuberculin skin test without active tuberculosis; I69.851 Hemiplegia and hemiparesis following other cerebrovascular disease affecting right dominant side; R26.89 Other abnormalities of gait and mobility; Z99.89 Dependence on other enabling machines and devices; Z86.19 Personal history of other infectious and parasitic diseases
CPT/HCPCS: 36415; 80053; 85027; 86593; 86780; 87811; C9803-CS; U0003; U0005

== ENCOUNTER 2022-10-27 15:10 | Emergency (ER) | payer OTHER ==
[2022-10-27 15:29] VITALS: RESP 19; BMI 26.6
[2022-10-27] MEDS ORDERED: SENNOSIDES/DOCUSATE COMBO (SENNA PLUS) TABLET (UD) PO ONE (17:28)
[2022-10-27] MEDS ORDERED: POLYETHYLENE GLYCOL (HEALTHYLAX) 3350 17 GM PACKET PO ONE (17:30)
[2022-10-27 22:05] VITALS: BP 136/78; PULSE 78; TEMP 98.2
== END 2022-10-27 22:05 | disposition home or self-care (01) ==
LOC: JER 15:10
DX: R76.11 Nonspecific reaction to tuberculin skin test without active tuberculosis (principal); Z11.1 Encounter for screening for respiratory tuberculosis
CPT/HCPCS: 71046-TC-FY; 99283-25

== ENCOUNTER 2022-12-30 22:14 | Inpatient (IN) | payer OTHER ==
[2022-12-30 22:35] VITALS: BMI 25.1
[2022-12-30] MEDS ORDERED: LORazepam 2 MG/ML SDV VIAL IM ONE (22:38)
[2022-12-30] MEDS ORDERED: FOLIC ACID INJECTION - 1 MG, THIAMINE HCL 100 MG, MULTIVIT INJECTION ADULT 10 ML in SOD... IVPB ONE (22:38)
[2022-12-30] MEDS ORDERED: LORazepam 2 MG/ML SDV VIAL IVPUSH ONE (22:38)
[2022-12-30 23:22] LABS: INR 1.13 (0.83-1.09); PROTHROMBIN TIME (PATIENT) 13.1 SEC (9.7-13.0)
[2022-12-30 23:24] LABS: ACTIVATED PTT 28.4 SECONDS (25.2-36.5)
[2022-12-30] MEDS ORDERED: chlordiazePOXIDE HCL 25 MG CAPSULE PO ONE (23:34)
[2022-12-30 23:41] LABS: CHLORIDE 100 mmol/L (98-107); SODIUM 138 mmol/L (136-145)
[2022-12-30 23:43] LABS: ANION GAP 13 MMOL/L (8-16); BLOOD UREA NITROGEN 11.5 mg/dL (7-18); CALCIUM 8.9 mg/dL (8.5-10.1); CO2 26 mmol/L (21-32); LIPASE 46 U/L (73-393)
[2022-12-30 23:44] LABS: ALBUMIN 3.6 g/dl (3.4-5.0); GLUCOSE,RANDOM 112 mg/dL (74-106)
[2022-12-30 23:46] LABS: CREATININE 0.7 mg/dL (0.55-1.3); SGOT/AST 262 U/L (15-37); SGPT/ALT 83 U/L (13-61)
[2022-12-30] MEDS ORDERED: chlordiazePOXIDE HCL 25 MG CAPSULE ONE (23:47)
[2022-12-30 23:48] LABS: BILIRUBIN,TOTAL 1.2 mg/dL (0.2-1); TOT PROT 9.6 g/dl (6.4-8.2)
[2022-12-30 23:49] LABS: ALK PHOS 68 U/L (45-117)
[2022-12-31 00:12] LABS: MAGNESIUM 0.7 mg/dL (1.8-2.4)
[2022-12-31] MEDS ORDERED: MAGNESIUM SULF 50% (8.12 MEQ/2 ML-1 GM VIAL) IVPB ONE ×2 (00:14→03:19)
[2022-12-31] MEDS ORDERED: MAGNESIUM SULFATE IN WATER 2 GM/50 ML IVPB IVPB ONE ×2 (00:15→04:53)
[2022-12-31 02:28] LABS: PHOSPHOROUS 3.2 mg/dL (2.5-4.9)
[2022-12-31] MEDS ORDERED: chlordiazePOXIDE HCL 25 MG CAPSULE PO PRN (03:23)
[2022-12-31 04:04] LABS: CALCIUM 8.4 mg/dL (8.5-10.1)
[2022-12-31 04:05] LABS: BLOOD UREA NITROGEN 9.3 mg/dL (7-18)
[2022-12-31 04:08] LABS: CREATININE 0.6 mg/dL (0.55-1.3)
[2022-12-31] MEDS ORDERED: chlordiazePOXIDE HCL 25 MG CAPSULE ONE ×4 (04:53→22:20)
[2022-12-31] MEDS: chlordiazePOXIDE HCL 25 MG CAPSULE PO SCH ×5 (04:57→22:30)
[2022-12-31] MEDS ORDERED: LORazepam 2 MG/ML SDV VIAL IVPUSH PRN ×4 (08:15→10:45)
[2022-12-31] MEDS ORDERED: LORazepam 2 MG/ML SDV VIAL IVPUSH ONE (08:30)
[2022-12-31] MEDS ORDERED: levETIRAcetam 500 MG TABLET (FP) PO ONE ×2 (08:44→22:20)
[2022-12-31] MEDS ORDERED: FOLIC ACID 1 MG TABLET (FP) ONE (08:44)
[2022-12-31] MEDS ORDERED: ASPIRIN COATED 81 MG TABLET.EC ONE (08:44)
[2022-12-31] MEDS ORDERED: NICOTINE 7 MG/24 HOURS TOPICAL PATCH TD ONE (08:44)
[2022-12-31] MEDS ORDERED: THIAMINE HCL 100 MG TABLET (FP) ONE (08:44)
[2022-12-31] MEDS ORDERED: amLODIPine BESYLATE 10 MG TABLET (FP) ONE (08:44)
[2022-12-31] MEDS ORDERED: ENOXAPARIN NA (PORCINE) 40 MG/0.4 ML DISP.SYRIN SQ ONE (08:45)
[2022-12-31] MEDS: ASPIRIN COATED 81 MG TABLET.EC PO SCH (09:04)
[2022-12-31] MEDS: levETIRAcetam 500 MG TABLET (FP) PO SCH ×2 (09:04→22:35)
[2022-12-31] MEDS: ENOXAPARIN NA (PORCINE) 40 MG/0.4 ML DISP.SYRIN SQ SCH (09:04)
[2022-12-31] MEDS: NICOTINE 7 MG/24 HOURS TOPICAL PATCH TD SCH (09:05)
[2022-12-31] MEDS: amLODIPine BESYLATE 10 MG TABLET (FP) PO SCH (09:05)
[2022-12-31 09:08] LABS: OPIATES, URI NEGATIVE (NEGATIVE); PHENCYCLIDINE,URINE NEGATIVE (NEGATIVE); URINE BARBITURATES NEGATIVE (NEGATIVE); URINE BENZODIAZEPINES NEGATIVE (NEGATIVE)
[2022-12-31 09:11] LABS: COCAINE, UR NEGATIVE (NEGATIVE); METHADONE, UR NEGATIVE (NEGATIVE); URINE AMPHETAMINES NEGATIVE (NEGATIVE)
[2022-12-31] MEDS ORDERED: THIAMINE HCL 100 MG TABLET (FP) PO SCH (10:00)
[2022-12-31] MEDS ORDERED: FOLIC ACID 1 MG TABLET (FP) PO SCH (10:00)
[2022-12-31] MEDS ORDERED: LACTATED RINGERS SOLUTION 1,000 ML/1,000 ML INFUS.BAG IV SCH (10:45)
[2022-12-31 11:01] LABS: BASO % 0.7 % (0-2.0); EOS % 1.4 % (0-4.5); HEMATOCRIT 46.6 % (35.4-49); HEMOGLOBIN 16.1 GM/dL (11.7-16.9); LYMPH % 32.1 % (8-40); MCH 30.1 pg (25.7-33.7); MCHC 34.5 g/dl (32.0-35.9); MEAN CELL VOLUME 87.3 fl (80-96); MEAN PLT VOLUME 8.1 fl (7.5-11.1); MONO % 13.4 % (3.8-10.2); NEUT % 52.4 % (42.8-82.8); PLATELET COUNT 94 10^3/uL (134-434); RBC 5.34 M/mm3 (4.00-5.60); RDW 16.5 % (11.9-15.9); WHITE BLOOD COUNT 3.7 K/mm3 (4.0-10.0)
[2022-12-31 11:21] LABS: ALBUMIN 3.4 g/dl (3.4-5.0); CALCIUM 8.6 mg/dL (8.5-10.1)
[2022-12-31 11:24] LABS: CREATININE 0.7 mg/dL (0.55-1.3); PHOSPHOROUS 1.6 mg/dL (2.5-4.9)
[2022-12-31 11:25] LABS: TOT PROT 9.3 g/dl (6.4-8.2)
[2022-12-31 11:26] LABS: BILIRUBIN,TOTAL 1.4 mg/dL (0.2-1)
[2022-12-31 11:32] LABS: PLATELET ESTIMATE DECREASED
[2022-12-31] MEDS: ABACAVIR/DOLUTEGRAVIR/LAMIVUDI (TRIUMEQ) TABLET PO SCH (13:21)
[2022-12-31] MEDS: CYANOCOBALAMIN 1,000 MCG TABLET (FP) PO SCH (13:24)
[2022-12-31 17:36] LABS: BASO % 0.7 % (0-2.0); EOS % 0.5 % (0-4.5); HEMATOCRIT 48.1 % (35.4-49); HEMOGLOBIN 16.1 GM/dL (11.7-16.9); LYMPH % 25.8 % (8-40); MCH 29.1 pg (25.7-33.7); MCHC 33.6 g/dl (32.0-35.9); MEAN CELL VOLUME 86.9 fl (80-96); MEAN PLT VOLUME 8.5 fl (7.5-11.1); MONO % 13.1 % (3.8-10.2); NEUT % 59.9 % (42.8-82.8); PLATELET COUNT 82 10^3/uL (134-434); RBC 5.54 M/mm3 (4.00-5.60); RDW 16.5 % (11.9-15.9); WHITE BLOOD COUNT 3.5 K/mm3 (4.0-10.0)
[2022-12-31 17:58] LABS: CALCIUM 8.7 mg/dL (8.5-10.1)
[2022-12-31 17:59] LABS: ALBUMIN 3.2 g/dl (3.4-5.0); BLOOD UREA NITROGEN 13.5 mg/dL (7-18)
[2022-12-31 18:02] LABS: CREATININE 0.7 mg/dL (0.55-1.3)
[2022-12-31 18:03] LABS: TOT PROT 8.7 g/dl (6.4-8.2)
[2022-12-31 18:04] LABS: BILIRUBIN,TOTAL 1.4 mg/dL (0.2-1)
[2023-01-01] MEDS: chlordiazePOXIDE HCL 25 MG CAPSULE PO SCH ×3 (04:04→17:25)
[2023-01-01 07:08] LABS: BASO % 0.6 % (0-2.0); EOS % 0.8 % (0-4.5); HEMATOCRIT 50.1 % (35.4-49); LYMPH % 29.2 % (8-40); MCH 29.7 pg (25.7-33.7); MEAN CELL VOLUME 87.5 fl (80-96); MEAN PLT VOLUME 8.8 fl (7.5-11.1); MONO % 10.9 % (3.8-10.2); NEUT % 58.5 % (42.8-82.8); PLATELET COUNT 83 10^3/uL (134-434); RBC 5.73 M/mm3 (4.00-5.60); RDW 16.3 % (11.9-15.9); WHITE BLOOD COUNT 3.5 K/mm3 (4.0-10.0)
[2023-01-01 07:14] LABS: ALBUMIN 3.3 g/dl (3.4-5.0); CALCIUM 8.7 mg/dL (8.5-10.1)
[2023-01-01 07:15] LABS: BLOOD UREA NITROGEN 12.9 mg/dL (7-18)
[2023-01-01 07:18] LABS: CREATININE 0.7 mg/dL (0.55-1.3)
[2023-01-01 07:19] LABS: BILIRUBIN,TOTAL 1.8 mg/dL (0.2-1)
[2023-01-01] MEDS ORDERED: LORazepam 2 MG/ML SDV VIAL IVPUSH PRN (09:56)
[2023-01-01] MEDS ORDERED: MAGNESIUM SULF 50% (8.12 MEQ/2 ML-1 GM VIAL) IVPB ONE ×2 (09:59→13:26)
[2023-01-01] MEDS ORDERED: THIAMINE HCL 200 MG/2 ML VIAL IVPB SCH ×2 (10:00→10:01)
[2023-01-01] MEDS ORDERED: SODIUM PHOSPHATE - 30 MM in SODIUM CHLORIDE 500 ML IVPB ONE (10:15)
[2023-01-01] MEDS: PANTOPRAZOLE 40 MG TABLET PO SCH (10:22)
[2023-01-01] MEDS: amLODIPine BESYLATE 10 MG TABLET (FP) PO SCH (10:22)
[2023-01-01] MEDS: levETIRAcetam 500 MG TABLET (FP) PO SCH (10:23)
[2023-01-01] MEDS: CYANOCOBALAMIN 1,000 MCG TABLET (FP) PO SCH (10:23)
[2023-01-01] MEDS: ABACAVIR/DOLUTEGRAVIR/LAMIVUDI (TRIUMEQ) TABLET PO SCH (10:24)
[2023-01-01] MEDS: ASPIRIN COATED 81 MG TABLET.EC PO SCH (10:25)
[2023-01-01] MEDS: ENOXAPARIN NA (PORCINE) 40 MG/0.4 ML DISP.SYRIN SQ SCH (10:25)
[2023-01-01 10:33] LABS: MAGNESIUM 1.2 mg/dL (1.8-2.4)
[2023-01-01 10:37] LABS: PHOSPHOROUS 1.8 mg/dL (2.5-4.9)
[2023-01-01] MEDS: NICOTINE 7 MG/24 HOURS TOPICAL PATCH TD SCH (12:40)
[2023-01-01] MEDS ORDERED: metoPROLOL SUCCINATE 25 MG TAB.SR.24H (FP) PO SCH (14:00)
[2023-01-01] MEDS ORDERED: MAGNESIUM 2GM/50ML STERILE WATER IVPB IVPB ONE ×2 (16:43→21:36)
[2023-01-01] MEDS ORDERED: LACTATED RINGERS SOLUTION 1,000 ML/1,000 ML INFUS.BAG IV SCH (18:45)
[2023-01-01] MEDS ORDERED: levETIRAcetam 500 MG TABLET (FP) PO SCH (19:11)
[2023-01-01] MEDS ORDERED: chlordiazePOXIDE HCL 25 MG CAPSULE PO SCH (19:27)
[2023-01-01 19:59] LABS: ARTERIAL BLOOD GAS BASE EXCESS 1.5 mmol/L (-2-2); ARTERIAL BLOOD GAS pH 7.464 (7.350-7.450)
[2023-01-01 20:01] LABS: ARTERIAL BLOOD GAS PO2 36.7 mmHg (80-100)
[2023-01-01] MEDS ORDERED: levETIRAcetam 500 MG/5 ML INJECTION VIAL IVPB ONE ×3 (20:17→22:00)
[2023-01-01 21:26] LABS: ARTERIAL BLD GAS O2 SATURATION 96.1 % (95-98); ARTERIAL BLOOD GAS BASE EXCESS 2.7 mmol/L (-2-2); ARTERIAL BLOOD GAS PO2 76.5 mmHg (80-100); ARTERIAL BLOOD GAS pH 7.473 (7.350-7.450)
[2023-01-01] MEDS ORDERED: POTASSIUM PHOSPHATE 15 MM in DEXTROSE 5%-WATER - 250 ML IVPB ONE (21:54)
[2023-01-01] MEDS: THIAMINE HCL 200 MG/2 ML VIAL IVPB SCH (22:02)
[2023-01-01 22:09] LABS: HEMATOCRIT 44.5 % (35.4-49); MCH 29.4 pg (25.7-33.7); MCHC 33.7 g/dl (32.0-35.9); MEAN CELL VOLUME 87.3 fl (80-96); MEAN PLT VOLUME 8.9 fl (7.5-11.1); PLATELET COUNT 104 10^3/uL (134-434); RDW 16.6 % (11.9-15.9); WHITE BLOOD COUNT 5.4 K/mm3 (4.0-10.0)
[2023-01-01 22:26] LABS: CALCIUM 8.5 mg/dL (8.5-10.1)
[2023-01-01 22:27] LABS: ALBUMIN 2.6 g/dl (3.4-5.0); BLOOD UREA NITROGEN 23.2 mg/dL (7-18); MAGNESIUM 2.3 mg/dL (1.8-2.4)
[2023-01-01 22:30] LABS: CREATININE 1.1 mg/dL (0.55-1.3); PHOSPHOROUS 2.6 mg/dL (2.5-4.9)
[2023-01-01 22:32] LABS: BILIRUBIN,TOTAL 1.3 mg/dL (0.2-1)
[2023-01-02] MEDS ORDERED: chlordiazePOXIDE HCL 10 MG CAPSULE PO PRN ×2
[2023-01-02] MEDS ORDERED: LACTATED RINGERS SOLUTION 1,000 ML/1,000 ML INFUS.BAG IV STA (00:59)
[2023-01-02] MEDS ORDERED: VANCOMYCIN 1 GM in D5W (PRE-DOCKED) 1,000 MG/250 ML IVPB SCH ×2 (03:00→07:30)
[2023-01-02] MEDS ORDERED: levETIRAcetam 500 MG/5 ML INJECTION VIAL IVPB ONE (03:15)
[2023-01-02] MEDS: PIPERACILLIN/TAZOB 4.5 GM 4.5 GM in DEXTROSE 5%-WATER 100 ML IVPB SCH ×4 (04:01→20:47)
[2023-01-02] MEDS ORDERED: chlordiazePOXIDE HCL 10 MG CAPSULE PO SCH (05:00)
[2023-01-02] MEDS: chlordiazePOXIDE HCL 10 MG CAPSULE PO SCH ×4 (05:16→22:41)
[2023-01-02] MEDS: THIAMINE HCL 200 MG/2 ML VIAL IVPB SCH ×3 (05:43→21:36)
[2023-01-02 08:06] LABS: BASO % 0.7 % (0-2.0); EOS % 1.1 % (0-4.5); HEMATOCRIT 41.3 % (35.4-49); HEMOGLOBIN 14.1 GM/dL (11.7-16.9); LYMPH % 19.4 % (8-40); MCH 30.1 pg (25.7-33.7); MEAN CELL VOLUME 88.5 fl (80-96); MEAN PLT VOLUME 8.9 fl (7.5-11.1); MONO % 8.8 % (3.8-10.2); PLATELET COUNT 106 10^3/uL (134-434); RBC 4.67 M/mm3 (4.00-5.60); WHITE BLOOD COUNT 5.3 K/mm3 (4.0-10.0)
[2023-01-02 08:19] LABS: ALBUMIN 2.7 g/dl (3.4-5.0); CALCIUM 8.3 mg/dL (8.5-10.1); MAGNESIUM 1.8 mg/dL (1.8-2.4)
[2023-01-02 08:22] LABS: CREATININE 0.8 mg/dL (0.55-1.3)
[2023-01-02 08:23] LABS: BILIRUBIN,TOTAL 1.5 mg/dL (0.2-1); PHOSPHOROUS 3.4 mg/dL (2.5-4.9); TOT PROT 7.3 g/dl (6.4-8.2)
[2023-01-02 08:29] LABS: BLOOD UREA NITROGEN 18.8 mg/dL (7-18)
[2023-01-02 08:33] LABS: PH,URINE 5.5 (5.0-8.0); URINE APPEARANCE CLOUDY; URINE BILIRUBIN SMALL (NEGATIVE); URINE COLOR DK YELLOW; URINE GLUCOSE (UA) NEGATIVE (NEGATIVE); URINE KETONE TRACE (NEGATIVE); URINE LEUK ESTERASE TRACE (NEGATIVE); URINE NITRITE POSITIVE (NEGATIVE); URINE PROTEIN TRACE (NEGATIVE)
[2023-01-02 08:58] LABS: EPI CELLS 13.5 /uL (0-25.1); HYALINE CASTS 4.27 /uL (0-3.1); URINE WBC 24.6 /uL (0-25.8)
[2023-01-02] MEDS ORDERED: AZITHROMYCIN IVPB 500 MG in DEXTROSE 5%-WATER - 250 ML IVPB SCH (10:00)
[2023-01-02] MEDS ORDERED: levETIRAcetam 500 MG TABLET (FP) PO SCH (10:00)
[2023-01-02] MEDS: amLODIPine BESYLATE 10 MG TABLET (FP) PO SCH (10:06)
[2023-01-02] MEDS: ASPIRIN COATED 81 MG TABLET.EC PO SCH (10:06)
[2023-01-02] MEDS: levETIRAcetam 500 MG TABLET (FP) PO SCH ×2 (10:06→21:36)
[2023-01-02] MEDS: CYANOCOBALAMIN 1,000 MCG TABLET (FP) PO SCH (10:06)
[2023-01-02] MEDS: metoPROLOL SUCCINATE 25 MG TAB.SR.24H (FP) PO SCH (10:06)
[2023-01-02] MEDS: ABACAVIR/DOLUTEGRAVIR/LAMIVUDI (TRIUMEQ) TABLET PO SCH (10:07)
[2023-01-02] MEDS: NICOTINE 7 MG/24 HOURS TOPICAL PATCH TD SCH (10:07)
[2023-01-02] MEDS: PANTOPRAZOLE 40 MG TABLET PO SCH (10:07)
[2023-01-02] MEDS: ENOXAPARIN NA (PORCINE) 40 MG/0.4 ML DISP.SYRIN SQ SCH (10:08)
[2023-01-02] MEDS ORDERED: VANCOMYCIN 1 GM/200 ML PREMIX BAG (RESTRICTED TO ID ONLY) IVPB SCH (10:15)
[2023-01-02] MEDS ORDERED: AZITHROMYCIN IVPB 500 MG/250 ML BAG IVPB SCH (10:30)
[2023-01-02] MEDS: LACTATED RINGERS SOLUTION 1,000 ML/1,000 ML INFUS.BAG IV SCH ×3 (13:32→21:41)
[2023-01-02] MEDS: VANCOMYCIN/WATER FOR INJ (PEG) 1,000 MG/200 ML BAG IVPB SCH (22:14)
[2023-01-03] MEDS ORDERED: ACETAMINOPHEN 325 MG TABLET (FP) PO ONE (02:17)
[2023-01-03] MEDS: PIPERACILLIN/TAZOB 4.5 GM 4.5 GM in DEXTROSE 5%-WATER 100 ML IVPB SCH ×3 (02:39→17:18)
[2023-01-03] MEDS ORDERED: chlordiazePOXIDE HCL 10 MG CAPSULE PO SCH (05:00)
[2023-01-03] MEDS: chlordiazePOXIDE HCL 10 MG CAPSULE PO SCH ×2 (05:42→16:45)
[2023-01-03] MEDS: THIAMINE HCL 200 MG/2 ML VIAL IVPB SCH ×3 (05:42→21:54)
[2023-01-03 08:37] LABS: CALCIUM 8.5 mg/dL (8.5-10.1)
[2023-01-03 08:38] LABS: ALBUMIN 2.7 g/dl (3.4-5.0); BLOOD UREA NITROGEN 9.4 mg/dL (7-18); MAGNESIUM 1.2 mg/dL (1.8-2.4)
[2023-01-03 08:41] LABS: CREATININE 0.7 mg/dL (0.55-1.3)
[2023-01-03 08:42] LABS: BILIRUBIN,TOTAL 1.2 mg/dL (0.2-1); TOT PROT 7.6 g/dl (6.4-8.2)
[2023-01-03] MEDS: VANCOMYCIN 1 GM in D5W (PRE-DOCKED) 1,000 MG/250 ML IVPB SCH (08:51)
[2023-01-03] MEDS: LACTATED RINGERS SOLUTION 1,000 ML/1,000 ML INFUS.BAG IV SCH (08:52)
[2023-01-03] MEDS: levETIRAcetam 500 MG TABLET (FP) PO SCH ×2 (09:20→21:54)
[2023-01-03] MEDS: PANTOPRAZOLE 40 MG TABLET PO SCH (09:20)
[2023-01-03] MEDS: ENOXAPARIN NA (PORCINE) 40 MG/0.4 ML DISP.SYRIN SQ SCH (09:20)
[2023-01-03] MEDS: amLODIPine BESYLATE 10 MG TABLET (FP) PO SCH ×2 (09:21→13:22)
[2023-01-03] MEDS: ASPIRIN COATED 81 MG TABLET.EC PO SCH (09:22)
[2023-01-03] MEDS: metoPROLOL SUCCINATE 25 MG TAB.SR.24H (FP) PO SCH (09:23)
[2023-01-03] MEDS: VANCOMYCIN/WATER FOR INJ (PEG) 1,000 MG/200 ML BAG IVPB SCH ×2 (09:24→21:55)
[2023-01-03] MEDS: ABACAVIR/DOLUTEGRAVIR/LAMIVUDI (TRIUMEQ) TABLET PO SCH (09:25)
[2023-01-03] MEDS: CYANOCOBALAMIN 1,000 MCG TABLET (FP) PO SCH (09:25)
[2023-01-03] MEDS: NICOTINE 7 MG/24 HOURS TOPICAL PATCH TD SCH (09:25)
[2023-01-03] MEDS ORDERED: MAGNESIUM 2GM/50ML STERILE WATER IVPB IVPB ONE ×2 (10:00→13:00)
[2023-01-03 11:05] LABS: HEMOGLOBIN 13.7 GM/dL (11.7-16.9); MCH 30.2 pg (25.7-33.7); MCHC 34.3 g/dl (32.0-35.9); MEAN CELL VOLUME 88.1 fl (80-96); MEAN PLT VOLUME 9.4 fl (7.5-11.1); PLATELET COUNT 130 10^3/uL (134-434); RBC 4.54 M/mm3 (4.00-5.60); RDW 15.7 % (11.9-15.9); WHITE BLOOD COUNT 5.7 K/mm3 (4.0-10.0)
[2023-01-03] MEDS ORDERED: metoPROLOL SUCCINATE 25 MG TAB.SR.24H (FP) PO SCH (12:49)
[2023-01-04] MEDS: PIPERACILLIN/TAZOB 4.5 GM 4.5 GM in DEXTROSE 5%-WATER 100 ML IVPB SCH ×2 (01:07→11:48)
[2023-01-04] MEDS ORDERED: chlordiazePOXIDE HCL 10 MG CAPSULE PO ONE ×2 (05:00)
[2023-01-04] MEDS: THIAMINE HCL 200 MG/2 ML VIAL IVPB SCH ×2 (05:32→15:15)
[2023-01-04] MEDS: ABACAVIR/DOLUTEGRAVIR/LAMIVUDI (TRIUMEQ) TABLET PO SCH (09:26)
[2023-01-04] MEDS: NICOTINE 7 MG/24 HOURS TOPICAL PATCH TD SCH (09:26)
[2023-01-04] MEDS: ENOXAPARIN NA (PORCINE) 40 MG/0.4 ML DISP.SYRIN SQ SCH (09:26)
[2023-01-04] MEDS: VANCOMYCIN/WATER FOR INJ (PEG) 1,000 MG/200 ML BAG IVPB SCH (09:26)
[2023-01-04] MEDS: ASPIRIN COATED 81 MG TABLET.EC PO SCH (09:27)
[2023-01-04] MEDS: PANTOPRAZOLE 40 MG TABLET PO SCH (09:27)
[2023-01-04] MEDS: levETIRAcetam 500 MG TABLET (FP) PO SCH ×2 (09:27→21:29)
[2023-01-04] MEDS: CYANOCOBALAMIN 1,000 MCG TABLET (FP) PO SCH (09:27)
[2023-01-04 09:53] LABS: HEMATOCRIT 41.2 % (35.4-49); HEMOGLOBIN 13.9 GM/dL (11.7-16.9); MCH 29.9 pg (25.7-33.7); MCHC 33.7 g/dl (32.0-35.9); MEAN CELL VOLUME 88.6 fl (80-96); MEAN PLT VOLUME 8.4 fl (7.5-11.1); PLATELET COUNT 187 10^3/uL (134-434); RBC 4.65 M/mm3 (4.00-5.60); RDW 15.6 % (11.9-15.9); WHITE BLOOD COUNT 4.7 K/mm3 (4.0-10.0)
[2023-01-04] MEDS: amLODIPine BESYLATE 10 MG TABLET (FP) PO SCH (09:54)
[2023-01-04 10:07] LABS: CALCIUM 8.4 mg/dL (8.5-10.1)
[2023-01-04 10:08] LABS: ALBUMIN 2.8 g/dl (3.4-5.0); BLOOD UREA NITROGEN 6.4 mg/dL (7-18); MAGNESIUM 1.5 mg/dL (1.8-2.4)
[2023-01-04 10:11] LABS: CREATININE 0.7 mg/dL (0.55-1.3); PHOSPHOROUS 3.1 mg/dL (2.5-4.9)
[2023-01-04 10:12] LABS: TOT PROT 7.7 g/dl (6.4-8.2)
[2023-01-04 10:13] LABS: BILIRUBIN,TOTAL 0.9 mg/dL (0.2-1)
[2023-01-04] MEDS: AMOX TR/POT CLAV 875MG/125MG TABLETS (FP) PO SCH ×2 (15:14→17:41)
[2023-01-04] MEDS: THIAMINE HCL 100 MG TABLET (FP) PO SCH ×2 (17:41→21:29)
[2023-01-04] MEDS: NYSTATIN 500,000 UNITS/5 ML SUSPENSION PO SCH (19:28)
[2023-01-05] MEDS ORDERED: LORazepam 2 MG/ML SDV VIAL IM ONE (03:52)
[2023-01-05] MEDS: NYSTATIN 500,000 UNITS/5 ML SUSPENSION PO SCH ×4 (06:24→17:35)
[2023-01-05 08:11] LABS: CALCIUM 8.7 mg/dL (8.5-10.1); HEMATOCRIT 41.5 % (35.4-49); HEMOGLOBIN 14.1 GM/dL (11.7-16.9); MCH 30.2 pg (25.7-33.7); MEAN CELL VOLUME 88.7 fl (80-96); MEAN PLT VOLUME 8.8 fl (7.5-11.1); PLATELET COUNT 230 10^3/uL (134-434); RBC 4.67 M/mm3 (4.00-5.60); RDW 15.9 % (11.9-15.9); WHITE BLOOD COUNT 3.3 K/mm3 (4.0-10.0)
[2023-01-05 08:12] LABS: ALBUMIN 2.9 g/dl (3.4-5.0); MAGNESIUM 1.2 mg/dL (1.8-2.4)
[2023-01-05 08:15] LABS: CREATININE 0.6 mg/dL (0.55-1.3); PHOSPHOROUS 2.3 mg/dL (2.5-4.9)
[2023-01-05 08:17] LABS: BILIRUBIN,TOTAL 0.6 mg/dL (0.2-1); TOT PROT 7.9 g/dl (6.4-8.2)
[2023-01-05] MEDS: amLODIPine BESYLATE 10 MG TABLET (FP) PO SCH (09:10)
[2023-01-05] MEDS: NICOTINE 7 MG/24 HOURS TOPICAL PATCH TD SCH (09:10)
[2023-01-05] MEDS: CYANOCOBALAMIN 1,000 MCG TABLET (FP) PO SCH (09:11)
[2023-01-05] MEDS: ABACAVIR/DOLUTEGRAVIR/LAMIVUDI (TRIUMEQ) TABLET PO SCH (09:11)
[2023-01-05] MEDS: THIAMINE HCL 100 MG TABLET (FP) PO SCH ×2 (09:11→21:12)
[2023-01-05] MEDS: AMOX TR/POT CLAV 875MG/125MG TABLETS (FP) PO SCH ×2 (09:11→17:35)
[2023-01-05] MEDS: levETIRAcetam 500 MG TABLET (FP) PO SCH ×2 (09:11→21:12)
[2023-01-05] MEDS: ASPIRIN COATED 81 MG TABLET.EC PO SCH (09:11)
[2023-01-05] MEDS: PANTOPRAZOLE 40 MG TABLET PO SCH (09:11)
[2023-01-05] MEDS ORDERED: amLODIPine BESYLATE 10 MG TABLET (FP) PO ONE (09:38)
[2023-01-05] MEDS: ENOXAPARIN NA (PORCINE) 40 MG/0.4 ML DISP.SYRIN SQ SCH (10:59)
[2023-01-05] MEDS: POTASSIUM CHLORIDE TABS 20 MEQ TABLET.ER (FP) PO SCH ×2 (10:59→21:14)
[2023-01-05] MEDS: NAPH,MB-DB/K PH,MBDB POWDER PACKET PO SCH ×2 (11:00→21:14)
[2023-01-05] MEDS: MAGNESIUM SULF 50% (8.12 MEQ/2 ML-1 GM VIAL) IVPB SCH ×3 (12:26→16:04)
[2023-01-05] MEDS: MAGNESIUM OXIDE 400 MG TABLET (FP) PO SCH ×2 (12:26→21:12)
[2023-01-06] MEDS: NYSTATIN 500,000 UNITS/5 ML SUSPENSION PO SCH ×4 (01:00→17:38)
[2023-01-06 07:26] LABS: HEMATOCRIT 44.7 % (35.4-49); HEMOGLOBIN 15.1 GM/dL (11.7-16.9); MCHC 33.7 g/dl (32.0-35.9); MEAN CELL VOLUME 89.1 fl (80-96); MEAN PLT VOLUME 8.1 fl (7.5-11.1); PLATELET COUNT 243 10^3/uL (134-434); RBC 5.02 M/mm3 (4.00-5.60); RDW 15.8 % (11.9-15.9); WHITE BLOOD COUNT 3.1 K/mm3 (4.0-10.0)
[2023-01-06 07:29] LABS: CALCIUM 8.6 mg/dL (8.5-10.1)
[2023-01-06 07:30] LABS: ALBUMIN 3.1 g/dl (3.4-5.0); BLOOD UREA NITROGEN 10.4 mg/dL (7-18); MAGNESIUM 1.5 mg/dL (1.8-2.4)
[2023-01-06 07:33] LABS: CREATININE 0.6 mg/dL (0.55-1.3)
[2023-01-06 07:35] LABS: BILIRUBIN,TOTAL 0.6 mg/dL (0.2-1); TOT PROT 8.3 g/dl (6.4-8.2)
[2023-01-06] MEDS: ENOXAPARIN NA (PORCINE) 40 MG/0.4 ML DISP.SYRIN SQ SCH (09:56)
[2023-01-06] MEDS: AMOX TR/POT CLAV 875MG/125MG TABLETS (FP) PO SCH ×2 (09:56→17:38)
[2023-01-06] MEDS: NAPH,MB-DB/K PH,MBDB POWDER PACKET PO SCH (09:56)
[2023-01-06] MEDS: THIAMINE HCL 100 MG TABLET (FP) PO SCH ×2 (09:57→21:28)
[2023-01-06] MEDS: CYANOCOBALAMIN 1,000 MCG TABLET (FP) PO SCH (09:57)
[2023-01-06] MEDS: ABACAVIR/DOLUTEGRAVIR/LAMIVUDI (TRIUMEQ) TABLET PO SCH (09:57)
[2023-01-06] MEDS: PANTOPRAZOLE 40 MG TABLET PO SCH (09:57)
[2023-01-06] MEDS: levETIRAcetam 500 MG TABLET (FP) PO SCH ×2 (09:57→21:28)
[2023-01-06] MEDS: MAGNESIUM OXIDE 400 MG TABLET (FP) PO SCH (09:57)
[2023-01-06] MEDS: NICOTINE 7 MG/24 HOURS TOPICAL PATCH TD SCH (09:57)
[2023-01-06] MEDS: POTASSIUM CHLORIDE TABS 20 MEQ TABLET.ER (FP) PO SCH ×2 (09:57→21:28)
[2023-01-06] MEDS: ASPIRIN COATED 81 MG TABLET.EC PO SCH (10:15)
[2023-01-06] MEDS ORDERED: amLODIPine BESYLATE 10 MG TABLET (FP) PO SCH ×2 (13:00→22:00)
[2023-01-06] MEDS ORDERED: LORazepam 2 MG/ML SDV VIAL IVPUSH PRN ×2 (18:47→18:50)
[2023-01-06 23:36] VITALS: RESP 18
[2023-01-07] MEDS: NYSTATIN 500,000 UNITS/5 ML SUSPENSION PO SCH ×3 (01:34→12:01)
[2023-01-07] MEDS: LORazepam 2 MG/ML SDV VIAL IVPUSH SCH ×5 (08:11→09:36)
[2023-01-07 08:20] LABS: HEMATOCRIT 42.4 % (35.4-49); HEMOGLOBIN 14.3 GM/dL (11.7-16.9); MCH 30.2 pg (25.7-33.7); MCHC 33.8 g/dl (32.0-35.9); MEAN CELL VOLUME 89.3 fl (80-96); MEAN PLT VOLUME 8.6 fl (7.5-11.1); PLATELET COUNT 296 10^3/uL (134-434); RBC 4.75 M/mm3 (4.00-5.60); RDW 15.6 % (11.9-15.9); WHITE BLOOD COUNT 3.5 K/mm3 (4.0-10.0)
[2023-01-07] MEDS: ABACAVIR/DOLUTEGRAVIR/LAMIVUDI (TRIUMEQ) TABLET PO SCH ×2 (08:24→09:02)
[2023-01-07] MEDS: ENOXAPARIN NA (PORCINE) 40 MG/0.4 ML DISP.SYRIN SQ SCH ×2 (08:24→09:02)
[2023-01-07] MEDS: AMOX TR/POT CLAV 875MG/125MG TABLETS (FP) PO SCH (08:24)
[2023-01-07] MEDS: NICOTINE 7 MG/24 HOURS TOPICAL PATCH TD SCH ×2 (08:24→09:02)
[2023-01-07] MEDS: ASPIRIN COATED 81 MG TABLET.EC PO SCH ×2 (08:25→09:00)
[2023-01-07] MEDS: THIAMINE HCL 100 MG TABLET (FP) PO SCH ×2 (08:25→09:02)
[2023-01-07] MEDS: CYANOCOBALAMIN 1,000 MCG TABLET (FP) PO SCH ×2 (08:25→09:03)
[2023-01-07] MEDS: PANTOPRAZOLE 40 MG TABLET PO SCH ×2 (08:25→09:02)
[2023-01-07] MEDS: levETIRAcetam 500 MG TABLET (FP) PO SCH ×2 (08:25→09:01)
[2023-01-07 08:51] LABS: BLOOD UREA NITROGEN 9.4 mg/dL (7-18); CALCIUM 8.9 mg/dL (8.5-10.1); MAGNESIUM 1.4 mg/dL (1.8-2.4)
[2023-01-07 08:54] LABS: PHOSPHOROUS 3.1 mg/dL (2.5-4.9)
[2023-01-07 08:55] LABS: CREATININE 0.7 mg/dL (0.55-1.3)
[2023-01-07 13:54] VITALS: BP 120/77; PULSE 76; TEMP 98.8
== END 2023-01-07 13:54 | disposition home or self-care (01) | DRG 775 ==
LOC: JER 22:14 → JERBED 12-31 00:21 → J4S 01-01 00:38
PROVIDERS: ADMIT Internal Medicine; ATTEND Internal Medicine
PROC: HZ2ZZZZ Detoxification Services for Substance Abuse Treatment (ICD-10-PCS; principal; 2022-12-31)
DX: F10.230 Alcohol dependence with withdrawal, uncomplicated (principal); G93.41 Metabolic encephalopathy; J69.0 Pneumonitis due to inhalation of food and vomit; B20 Human immunodeficiency virus [HIV] disease; I16.0 Hypertensive urgency; E83.42 Hypomagnesemia; R56.9 Unspecified convulsions; I47.1 Supraventricular tachycardia; R74.01 Elevation of levels of liver transaminase levels; B37.0 Candidal stomatitis; I10 Essential (primary) hypertension; I69.351 Hemiplegia and hemiparesis following cerebral infarction affecting right dominant side; F17.210 Nicotine dependence, cigarettes, uncomplicated
CPT/HCPCS: 0241U-QW; 36415; 36600; 70450-TC; 71045-TC-FY; 71275-TC; 80048; 80053; 80177; 80307; 81003; 82140; 82550; 82553; 82803; 82962; 83605; 83690; 83735; 84100; 84146; 84425; 84439; 84443; 84481; 84484; 85025; 85027; 85379; 85610; 85730; 86359; 86360; 86480; 86704; 86803; 87040; 87081; 87086; 87186; 87340; 87517; 87522; 87536; 87633; 87899; 93005; 93010; 93306-TC; 93971-TC; 94010; 97116-GP; 97161-GP; 99285-25; Q9967